=== PATIENT | male | born 1990 | race Caucasian/White ===

== ENCOUNTER 2018-11-04 12:43 | Inpatient (IN) | payer MEDICAID ==
[2018-11-04] VITALS (10 sets, daily range): BP systolic 108–134; BP diastolic 64–85; BMI 29.7
[~2018-11-04] VITALS: Ht 185.4 cm; Wt 102.2 kg
--- NOTE | ~2018-11-04 | HEMODYNAMI ---
PATIENT:YRN PORTER MEDICAL RECORD: [id number] : [birth year] [address] [address] [id number] ADMISSION DATE: 11/04/18 Generatedon:11/05/201810:20 Patient name: YRN PORTER Patient #: [id number] : 1990 Date of study: 11/05/2018 Page: Of Hemodynamic Procedure Report Patient Data Patient Demographics Procedure consent was obtained First Name: YRN Gender: Male Last Name: GERMAN : 1990 Patient #: [id number] Age: 28 year(s) Race: SSN: [id number] Additional ID: [id number] Contact details Address: [address] [place] [address] State: [facility] Zip code: [address] Admission Admission Data Admission Date: 11/04/2018 Admission Time: 13:15 Arrival Date: 11/05/2018 Arrival Time: 0:00 Admit Source: Emergency Insurance Payor: Medicaid department Room #: D.CV06 Height (in.): 72.83 BSA: 2.26 (m2) Height (cm.): 185 BMI: 29.8 (kg/m2) Weight (lbs.): 224.87 Weight (kg.): 102 Lab Results Lab Result Date: 11/05/2018 Lab Result Time: 0:28 Biochemistry Name Units Result Min Max BUN mg/dl 11 --(-*--)-- 7 18 Creatinine mg/dl 0.8 --(-*--)-- 0.6 1.3 CBC Name Units Result Min Max Hematocrit % 41.1 -*(----)-- 42 54 Hemoglobin g/dl 14.1 --(*---)-- 13.5 17.5 Procedure Procedure Types Cath Procedure Diagnostic Procedure C [facility] w/Coronaries Sedation Charges Moderate Sedation up to 15 minutes PCI Procedure Coronary Stent Coronary Stent Initial Procedure Description Procedure Date Procedure Date: 11/05/2018 Procedure Start Time: 9:43 Procedure End Time: 10:13 Procedure Staff Name Function Gianluca Donaldson MD Performing Physician Mane Mccabe RT Monitor Kemi Padilla RT Scrub Harry Ibarra RN Nurse Procedure Data Cath Procedure Fluoroscopy Diagnostic fluoroscopy Total fluoroscopy Time: time: 8.33 min 8.33 min Diagnostic fluoroscopy Total fluoroscopy dose: dose: 1146 mGy 1146 mGy Contrast Material Contrast Material Type Amount (ml) Isovue 300 161 Entry Location Entry Primary Successful Side Size Upsize Upsize Entry Closure Succes sful Closure Location (Fr) 1 (Fr) 2 (Fr) Remarks Device Remarks Femoral Right 6 Fr Exoseal artery Short Estimated blood loss: 10 ml Diagnostic catheters Device Type Used For End Catheter Placement MULTIPACK Pigtail 5 Fr Procedure catheter MULTIPACK JL 4.0 5Fr Procedure catheter MULTIPACK 3DRC 5Fr Procedure catheter DIAGNOSTIC AR2 MOD 5 Fr Procedure catheter ([id number]) Procedure Complications No complications Procedure Medications Medication Administration Route Dosage 0.9% NaCl I.V. 100 ml/hr Oxygen etCO2 Nasal cannula 2 l/min Heparin Flush Bag added to field 2 bags (1000units/500ml NS) Lidocaine 2% added to field 20 Radial Cocktail added to field 1 syringe (Verapamil 2mg/Nitro 400mcg/Heparin 1500units) Versed I.V. 2 mg Fentanyl I.V. 50 mcg Versed I.V. 1 mg Versed I.V. 1 mg Integrilin (Bolus I.V. 9 ml 2mg/ml) Integrilin (Bolus wasted 1 ml 2mg/ml) Heparin Bolus I.V. 3000 units Plavix P.O. 600 mg Hemodynamics Rest BSA: 2.26 (m2) O2 Consumption: Estimated: 287.22 (ml/min) O2 Consumption indexed : Estimated:127.09 (ml/min/m) Heart Rate: 74 (bpm) Pressure Samples Time Site Value (mmHg) Purpose Heart Use Rate(bpm) 9:48 LV 74/73,71 Snapshot 72 Snapshots Pre Cath Intra NCS Post Cath Vital Signs Time Heart Resp SPO2 etCO2 NIBP Rhythm Pain Sedation Rate (ipm) (%) (mmHg) (mmHg) Status Level (bpm) 9:29:20 70 20 100 38 116/78(98) NSR 0 (11) 10(A) , No pain 9:34:44 72 19 99 38.7 125/69(89) NSR 0 (11) 10(A) , No pain 9:39:00 76 11 97 32.8 105/58(87) NSR 0 (11) 10(A) , No pain 9:43:55 73 11 99 46.9 105/63(86) NSR 0 (11) 10(A) , No pain 9:49:02 71 21 97 23.1 115/50(85) NSR 0 (11) 10(A) , No pain 9:53:14 76 13 99 38.7 118/67(88) NSR 0 (11) 9(A) , No pain 9:58:05 74 12 99 41.7 99/71(85) NSR 0 (11) 9(A) , No pain 10:02:49 76 13 95 40.2 109/70(86) NSR 0 (11) 9(A) , No pain 10:06:55 78 12 97 39.5 110/64(80) NSR 0 (11) 9(A) , No pain 10:11:19 68 19 99 30.5 110/62(80) NSR 0 (11) 10(A) , No pain Medications Time Medication Route Dose Verified Delivered Reason Not es Effectiveness by by 9:30:28 0.9% NaCl I.V. 100 Harry Harry Per physician ml/hr Fred Ibarra RN RN 9:30:39 Oxygen etCO2 2 l/min Harry Harry for low 02 sats Nasal Lorigan Fred cannula RN RN 9:30:52 Heparin Flush added 2 bags Harry Harry used for Bag to Lorigan Lorchad procedure (1000units/500ml field PEREA RN NS) 9:31:03 Lidocaine 2% added 20ml Harry Harry for local to vial Lorigan Lorigan anesthetic field PEREA RN 9:31:16 Radial Cocktail added 1 Harry Harry used for (Verapamil to syringe Lorigan Lorigan procedure 2mg/Nitro field PEREA RN 400mcg/Heparin 1500units) 9:44:21 Versed I.V. 2 mg Harry Harry for sedation Fred Ibarra RN, RN 9:44:30 Fentanyl I.V. 50 mcg Harry Harry for sedation Fred Ibarra RN, RN 9:48:37 Versed I.V. 1 mg Harry Harry for sedation Fred Ibarra RN RN 9:51:15 Versed I.V. 1 mg Harry Harry for sedation Fred Ibarra RN RN 10:02:18 Integrilin I.V. 9 ml Harry Harry for (Bolus 2mg/ml) Fred Ibarra antiplatelet RN RN therapy 10:03:35 Integrilin wasted 1 ml Harry Harry to sharp's (Bolus 2mg/ml) Fred Ibarra RN RN 10:03:55 Heparin Bolus I.V. 3,000 Harry Harry for units Fred Ibarra anticoagulation RN RN 10:12:33 Plavix P.O. 600 mg Harry Harry for Fred Ibarra antiplatelet RN RN therapy Procedure Log Time Note 9:12:05 Informed consent obtained and on chart 9:14:27 Patient Weight : 224.87 lbs 9:14:35 Patient Height : 72.83 inches 9:14:44 Insurance Payor : Medicaid 9:14:53 Arrival Date: 11/05/2018 12:00:00 AM 9:14:55 Admit Source: Emergency department 9:19:51 Lab Result : Hemoglobin 14.1 g/dl 9:19:51 Lab Result : Creatinine 0.8 mg/dl 9:19:51 Lab Result : BUN 11 mg/dl 9:19:51 Lab Result : Hematocrit 41.1 % 9:20:38 ACC Patient presents with Non-STEMI CCS Anginal Class 4--Inability to carry out any physical activity w/o angina. Angina may occur at rest. 9:20:41 Procedure Status Urgent Heart Cath (IP). 9:20:43 ACCPatient has been prescribed/administered the following anti-anginal medication within the last 2 weeks: None 9:20:45 Kemi Padilla RT(R) sent for patient. Start room use. 9:20:46 Time tracking: Regular hours (M-F 7:00 - 5:00) 9:20:49 Plan of Care:Hemodynamics will remain stable., Cardiac rhythm will remain stable., Comfort level will be maintained., Respiratory function will remain adequate., Patient/ family verbilizes understanding of procedure., Procedure tolerated without complication., Recovers from procedure without complications.. 9:21:03 H&P Date Dictated: 11/05/2018 Within 30 days and on chart.. 9:23:46 Patient received from CVICU to CCL 2 Alert and oriented. Tansferred to table in Supine position. 9:23:47 Warm blankets applied, and siomara hugger turned on for patient comfort. 9:23:48 Correct patient and procedure confirmed by team. 9:23:48 ECG and BP/O2 sat monitors applied to patient. 9:23:49 Pre-procedure instructions explained to patient. 9:23:49 Pre-op teaching completed and patient verbalized understanding. 9:23:51 Family in waiting room. 9:23:52 Patient NPO since Midnight. 9:28:05 Vital chart was started 9:30:28 0.9% NaCl 100 ml/hr I.V. was administered by Harry Ibarra RN; Per physician; 9:30:39 Oxygen 2 l/min etCO2 Nasal cannula was administered by Harry Ibarra RN; for low 02 sats; 9:30:48 SHEATH 6FR [place] ([id number]) opened to sterile field. 9:30:52 Heparin Flush Bag (1000units/500ml NS) 2 bags added to field was administered by Harry Ibarra RN; used for procedure; 9:31:03 Lidocaine 2% 20ml vial added to field was administered by Harry Ibarra RN; for local anesthetic; 9:31:16 Radial Cocktail (Verapamil 2mg/Nitro 400mcg/Heparin 1500units) 1 syringe added to field was administered by Harry Ibarra RN; used for procedure; 9:32:48 Baseline sample Acquired. 9:32:52 Rhythm: sinus rhythm 9:32:54 Full Disclosure recording started 9:33:16 Patient diabetic? Yes. 9:33:25 If diabetic: On Metformin? No 9:33:27 ----Pre-sedation anethsthesia assessment.---- 9:33:30 Previous problem with sedation/anesthesia? No ? 9:33:32 Snore? Yes 9:33:33 Sleep apnea? Yes 9:33:35 Deviated septum? No 9:33:37 Opens mouth fully? Yes 9:33:39 Sticks out tongue? Yes 9:33:45 Airway obstruction? Yes COPD 9:33:50 Dentures? No ? 9:33:55 Pre procedure: right dorsailis pedis pulse 2+ Normal; easily identifiable; not easily obliterated 9:34:07 Patient pain scale 0/10 ?. 9:34:20 IV patent on arrival in left wrist with 0.9% NaCl at KVO. 9:34:26 Lab results completed and on chart. 9:34:32 Right Radial & Right Groin area was prepped with chlora-prep and draped in sterile fashion 9:34:34 Alarms reviewed by R. N. 9:34:35 Sharps counted by scrub and verified by R.N. 9:35:54 1) 90+ Normal kidney functon but urine findings or structural abnormalities or genetic trait point to kidney disease. 9:36:18 Use device set Radial Dx or PCI 9:36:19 ACIST Syringe (31503) opened to sterile field. 9:36:20 Medline Cath Pack ([id number]) opened to sterile field. 9:36:21 Bag Decanter (2002S) opened to sterile field. 9:36:21 ACIST Hand Control (61331) opened to sterile field. 9:36:22 ACIST Manifold (14161) opened to sterile field. 9:36:23 Tegaderm 4 x 4 (1626W) opened to sterile field. 9:36:24 MBrace Wrist Support ([id number]) opened to sterile field. 9:36:26 EMERALD Guide Wire (262-214) opened to sterile field. 9:36:27 SHEATH 6FR RAIN (7988204) opened to sterile field. 9:43:21 Physician arrived 9:43:21 --------ALL STOP TIME OUT------ 9:43:21 Final Timeout: patient, procedure, and site verified with staff and physician. All members of the team are in agreement. 9:43:23 Right Radial & Right Groin site verified by team. 9:43:26 Fire Safety Assessment: A--An alcohol-based skin anteseptic being used preoperatively., C--Open oxygen or nitrous oxide is being used., D--An ESU, laser, or fiber-optic light is being used. 9:43:28 Physical assessment completed. ASA score P 2 - A patient with mild systemic disease as per Gianluca Donaldson MD. 9:43:34 Maximum allowable contrast dose (3.7 X eGFR X 0.75)249 ml. 9:43:36 Sedation plan: IV Moderate Sedation Medication:Versed, Fentanyl 9:43:39 Procedure started. 9:43:44 Local anesthetic to right radial artery with Lidocaine 2% by Gianluca Donaldson MD.INITIAL ACCESS ONLY 9:43:46 Zero performed for pressure channel P1 9:43:49 Zero performed for pressure channel P1 9:44:21 Versed 2 mg I.V. was administered by Harry Ibarra RN; for sedation; 9:44:30 Fentanyl 50 mcg I.V. was administered by Harry Ibarra RN; for sedation; 9:47:24 Use device set Multipack Set 9:47:26 DIAGNOSTIC Multipack 5Fr catheter set (FL8728) opened to sterile field. 9:47:32 Local anesthetic to right femoral artery with Lidocaine 2% by Gianluca Donaldson MD.ADDITIONAL ACCESS 9:47:39 A 6 Fr Short sheath was inserted into the Right Femoral artery 9:48:37 Versed 1 mg I.V. was administered by Harry Ibarra RN; for sedation; 9:48:49 A MULTIPACK Pigtail 5 Fr catheter was advanced over the wire and used for Procedure. 9:48:55 LV gram done using HSU 9:48:58 Injector settings: Ml/sec: 10, Volume: 20, 9:48:59 LV hemodynamics recorded. 9:49:04 EF : 40 % 9:49:05 Catheter exchanged over wire. 9:49:17 A MULTIPACK JL 4.0 5Fr catheter was advanced over the wire and used for Procedure. 9:50:11 LCA angiography performed. 9:50:21 INFLATOR Merit BasixCompak (ZZ3130) opened to sterile field. 9:50:22 CHOICE PT Extra Support 182cm wire ([id number]) opened to sterile field. 9:50:52 Catheter exchanged over wire. 9:51:02 A MULTIPACK 3DRC 5Fr catheter was advanced over the wire and used for Procedure. 9:51:15 Versed 1 mg I.V. was administered by Harry Ibarra RN; for sedation; 9:52:42 Catheter exchanged over wire. 9:52:52 A DIAGNOSTIC AR2 MOD 5 Fr catheter ([id number]) was advanced over the wire and used for Procedure. 9:53:28 Catheter removed. unable to cannulate vessel. 9:54:51 GUIDE 6FR AL 2.0 catheter (IE8QS92) opened to sterile field. 9:55:00 6 Fr AL 2 guide catheter was inserted over the wire 9:57:12 Guide Catheter removed. unable to cannulate vessel. 9:59:23 Guide Catheter removed. unable to cannulate vessel. 9:59:30 GUIDE 6FR LCB catheter (LA6LCB) opened to sterile field. 9:59:38 6 Fr LCB guide catheter was inserted over the wire 10:00:34 Catheter removed. unable to cannulate vessel. 10:00:39 GUIDE 6FR ALR1-2 catheter ([id number]) opened to sterile field. 10:00:49 6 Fr ALR1-2 guide catheter was inserted over the wire 10:01:22 RCA angiography performed. 10::49 Catheter exchanged over wire. 10:01:57 GUIDE 6FR XBLAD 4.0 catheter ([id number]) opened to sterile field. 10:02:05 6 Fr XBLAD 4 guide catheter was inserted over the wire 10:02:18 Integrilin (Bolus 2mg/ml) 9 ml I.V. was administered by Harry Ibarra RN; for antiplatelet therapy; 10:03:24 ACT drawn and resulted at 139 seconds. (normal therapeutic range 180-240 seconds). 10:03:29 CHOICE PT ES wire advanced. 10:03:35 Integrilin (Bolus 2mg/ml) 1 ml wasted was administered by Harry Ibarra RN; to sharp's; 10:03:55 Heparin Bolus 3,000 units I.V. was administered by Harry Ibarra RN; for anticoagulation; 10:06:11 Wire advanced across lesion. 10:06:25 Pre PCI Site: [place] pLAD has 99% stenosis. 10:06:28 ACC Pre-intervention GINA Flow is 3. 10:06:43 Place stent Inflation Number: 1 A COBRA RX 3.0 X 18 Stent was prepped and advanced across the Prox LAD . The stent was deployed at 17 ASHLEY for 0:10 (min:sec) . 10:09:46 Post PCI Site: [place] pLAD has 0% stenosis. 10:09:49 ACC Post-intervention GINA Flow is 3. 10:09:51 Stent catheter was removed intact over wire. 10::52 Wire removed. 10:09:52 Guide catheter removed. 10:09:59 EXOSEAL 6Fr (EX600) opened to sterile field. 10:10:08 Sheath removed intact; hemostasis achieved with Exoseal to the Right Femoral artery. 10:10:09 Procedure ended.(Physican Out) 10:10:41 ACCDominant side:Co-Dominant 10:10:48 Fluoroscopy time 08.33 minutes. 10:10:54 Flurop Dose total: 1146 10:10:54 Fluoroscopy dose: 1146 mGy 10:11:00 Dose Area Product 40295 mGy/cm. 10:11:04 Contrast amount:Isovue 300 161ml. 10:11:07 Maximum allowable dose exceeded? No. 10:11:08 Sharps counted by scrub and verified by R.N. 10:11:48 Insertion/operative site no bleeding no hematoma. 10:11:51 Post-op/insertion site Right Femoral artery dressed using a 4 x 4 and Tegaderm. 10:11:54 Post right femoral artery:stable, soft, clean and dry 10:11:55 Post Procedure Pulses reassessed and unchanged 10:11:57 Post-procedure physical assessment completed. ASA score P 2 - A patient with mild systemic disease as per Gianluca Donaldson MD. 10:12:00 Post procedure rhythm: unchanged. 10:12:03 Estimated blood loss: 10 ml 10:12:04 Post procedure instruction explained to patient.Patient verbalizes understanding. 10:12:05 Patient needs reinforcement of post procedure teaching. 10:12:23 Procedure type changed to Cath procedure, Diagnostic procedure, LHC, LHC w/Coronaries, Sedation Charges, Moderate Sedation up to 15 minutes, PCI procedure, Coronary Stent, Coronary Stent Initial 10:12:33 Plavix 600 mg P.O. was administered by Harry Ibarra RN; for antiplatelet therapy; 10:13:10 Procedure and supply charges have been captured, reviewed, submitted and are correct. 10:13:11 Procedure Complication : No complications 10:13:13 Vital chart was stopped 10:13:13 See physician's report for complete and final results. 10:13:15 Report given to CVICU. 10:13:18 Patient transfered to CVICU with Stretcher. 10:13:32 Procedure ended. 10:13:32 Full Disclosure recording stopped 10:13:41 ACC-PCI Only Patient was given prescriptions, or instructed by Gianluca Donaldson MD to start/continue the following medications upon discharge: Aspirin, Plavix 10:13:42 End room use (Document Last) Intervention Summary Intervention Notes Time ActionType Lesion and Equipment Action# Pressure Duration Attributes Used 10:06:43 Place stent Prox LAD COBRA RX 1 17 00:10 3.0 X 18 Stent Device Usage Item Name Manufacture Quantity Catalog Number Hospital Part Current Minimal Lot# / Charge Number Stock Stock Serial# Code ACIST Syringe Acist 1 23946 144634 864547 057620 20 (56615) Medical Systems Inc Medline Cath Medline 1 [id number] 725848 80079 919252 5 Pack ([id number]) Bag Decanter Microtek 1 2001S 050109 09182 405161 5 (2001S) Medical Inc. ACIST Hand Acist 1 54745 625961 287856 493567 5 Control Medical (26488) Systems Inc ACIST Manifold Acist 1 80620 621106 053119 774148 5 (69459) Medical Systems Inc Tegaderm 4 x 4 3M 1 1626W 992520 051555 416399 5 (1626W) MBrace Wrist Advanced 1 140-0250-00 551987 40397 095751 5 Support Vascular (120943710) Dynamics EMERALD Guide Cardinal 1 502-455 232211 733822 085813 5 Wire (502-455) Health SHEATH 6FR Cardinal 1 5231022 687587 2621839 237070 5 RAIN (6967756) Health DIAGNOSTIC Cardinal 1 MS8360 355723 82144 030946 30 Multipack 5Fr Health catheter set (VK9168) SHEATH 6FR Terumo 1 VGY878 825951 893199 711919 40 [place] (DXM665) MULTIPACK Cardinal 1 346359 5 Pigtail 5 Fr Health catheter MULTIPACK JL Cardinal 1 101057 5 4.0 5Fr Health catheter INFLATOR Merit Merit 1 UK6633 737961 451829 995274 15 Second LightmaHexadite Medical (NX8854) CHOICE PT [place] 1 [id number] 108958 936413 116432 5 Extra Support Scientific 182cm wire (0731707X4) MULTIPACK 3DRC Cardinal 1 844806 5 5Fr catheter Health DIAGNOSTIC AR2 Cardinal 1 [id number] 009069 673900 546721 20 MOD 5 Fr Health catheter (649104M) GUIDE 6FR AL Medtronic 1 [id number] 391576 84839 226186 1 2.0 catheter (UQ2VD70) GUIDE 6FR LCB Medtronic 1 LA6LCB 760558 15463 483594 1 catheter (LA6LCB) GUIDE 6FR Medtronic 1 [id number] 779733 86377 799056 1 ALR1-2 catheter (FH7SOU19) GUIDE 6FR Cardinal 1 71329008 905101 879484 501581 3 XBLAD 4.0 Health catheter (11753217) COBRA RX 3.0 X Celonova 1 861-61-63357 829831 713308503 8265069 0 4 [id number] 18 stent Biosciences (151-76-37863) EXOSEAL 6Fr Cardinal 1 EX600 727805 215410 210047 10 (EX600) Health Signature Audit [place] Stage Time Signature Unsigned Intra-Procedure 11/05/2018 Mane Mccabe 10:19:47 AM RT(R) Signatures Performing Physician : Signature : Gianluca Donaldson MD Date : Time : Monitor : Mane Mccabe RT Signature : Date : Time : Nurse : Harry Ibarra Signature : RN Date : Time : [facility] [address] [place] [address]
[2018-11-04 13:09] LABS: BASOPHILS 0.4 % (0-2); EOSINOPHILS 2.5 % (0-7); HEMATOCRIT 40.7 % (42.0-54.0); HEMOGLOBIN 14.1 g/dL (13.5-17.5); IMMATURE GRANULOCYTES 0.4 % (0-5); LYMPHOCYTES 15.9 % (15-50); MCH 31.4 pg (26.0-34.0); MCHC 34.6 g/dL (31.0-37.0); MCV 90.6 fL (80.0-100.0); MEAN PLATELET VOLUME 10.1 fL (7.4-10.4); NEUTROPHILS 72.8 % (40-80); PLATELET COUNT 333 10x3/uL (130-400); RBC 4.49 10x6/uL (4.20-6.10); RDW 13.3 % (11.5-14.5); WBC 12.2 10x3/uL (4.8-10.8)
[2018-11-04 13:20] LABS: INR 0.98 (0.85-1.17); PROTIME 12.5 SECONDS (11.6-15.0)
[2018-11-04 13:21] LABS: APTT 51.9 SECONDS (22.8-39.4)
[2018-11-04 13:32] LABS: ALBUMIN 3.3 g/dL (3.4-5.0); ALKALINE PHOSPHATASE 75 U/L (46-116); ALT (SGPT) 40 U/L (10-68); BILIRUBIN - TOTAL 0.49 mg/dL (0.2-1.3); CALC OSMOLALITY 279 mosm/kg (275-300); CALCIUM 8.1 mg/dL (8.5-10.1); CARBON DIOXIDE 27.3 mmol/L (21.0-32.0); CHLORIDE - SERUM 107 mmol/L (98-107); CREATININE - SERUM 0.8 mg/dL (0.6-1.3); GLUCOSE 90 mg/dL (74-106); SODIUM 141 mmol/L (136-145); UREA NITROGEN 11 mg/dL (7-18); eGFR NON AFRICAN AMERICAN > 90 mL/min (90-120)
[2018-11-04 13:41] LABS: CKMB 40.8 U/L (0.0-3.6); CREATINE KINASE 386 UL (21-232); PRO BNP 687 pg/mL (0-125)
--- NOTE | 2018-11-04 15:58 | NUR ---
REC'D PT TO ICU. INCREASED HEPARIN GTT TO 1100U/H PER SS ORDER. NXT PTT PLACED AT 2100 PER SS. PT DENIES CP AT PRESENT TIME. ALL MONITORING EQUIPMENT ATTACHED. ALARMS SET. ORIENTED PT AND HIS GF TO DEPT AND VISITING HRS.
--- NOTE | 2018-11-04 17:53 | NUR ---
PT CO C/P. RATES 6 ON SCALE [address] PACHECO AND REC'D CALL BACK. REC'D ORDERS. MS TERRA.
--- NOTE | 2018-11-04 18:03 | NUR ---
PT REQUESTING FOR THIS RN TO CHECK HIS BLOOD SUGAR. HE STATES THAT HIS BS DROPS AND HE FEELS LIKE ITS LOW NOW. FSBS DONE AND BS RESULTS 131.
--- NOTE | 2018-11-04 19:15 | NUR ---
REPORT RECIEVED, PT RESTING IN BED. AAOX4, PARTNER AT BEDSIDE. CONSENT FORMS SIGNED FOR CARDIAC CATH AND BLOOD. PT ON 2L O2 VIA NC, ASSESSMENT COMPLETED, SEE FLOWSHEET. L AC PIV TO SL, R AC PIV TO SL, L WRIST PIV INFUSING, SEE IV FLOWSHEET. CALL LIGHT IN REACH, WILL CONTINUE TO MONITOR.
--- NOTE | 2018-11-04 20:36 | NUR ---
PT AGITATED, REQUESTING CIGARRETE OR NICOTINE PATCH. DR PACHECO PAGED AND ORDERS RECIEVED FOR NICOTINE PATCH.
--- NOTE | 2018-11-04 23:00 | NUR ---
PT RESTING IN BED, NO SIGNS OF ACUTE DISTRESS, WILL CONTINUE TO MONITOR.
[2018-11-05] VITALS (19 sets, daily range): BP systolic 94–148; BP diastolic 56–87; Ht 185.4 cm; Wt 102.2 kg
[2018-11-05 00:33] LABS: HEMATOCRIT 41.1 % (42.0-54.0); HEMOGLOBIN 14.1 g/dL (13.5-17.5); MCH 30.9 pg (26.0-34.0); MCHC 34.3 g/dL (31.0-37.0); MCV 90.1 fL (80.0-100.0); MEAN PLATELET VOLUME 10.1 fL (7.4-10.4); RBC 4.56 10x6/uL (4.20-6.10); RDW 13.4 % (11.5-14.5); WBC 13.7 10x3/uL (4.8-10.8)
--- NOTE | 2018-11-05 01:00 | NUR ---
PT RESTING, VITALS STABLE, WILL CONTINUE TO MONITOR.
--- NOTE | 2018-11-05 03:15 | NUR ---
PT RESTING COMFORTABLY, NO SIGNS OF ACUTE DISTRESS. CALL LIGHT IN REACH, VITALS STABLE, WILL CONTINUE TO MONITOR.
--- NOTE | 2018-11-05 05:15 | NUR ---
PT'S PARTNER IN ROOM, PT RESTING IN BED. PARTNER ASSISTING WITH CHG BATH. CALL LIGHT IN REACH, WILL CONTINUE TO MONITOR.
--- NOTE | 2018-11-05 07:56 | NUR ---
0700 PT RECIEVED ALERT AND ORIENTED ON ROOM AIR HR NSR 70S, LAC RAC PIVS SL, L WRIST PIV SL WITH HEPARIN INFUSING, CONTIENNT, CALL LIGHT WITHIN REACH, DENIES ALL NEEDS
--- NOTE | 2018-11-05 09:22 | NUR ---
PREOP MEDS GIVEN AND PT TO APPLICATION DEVELOPMENT TEAM LEAD WITH CATH TEAM
--- NOTE | 2018-11-05 10:54 | NUR ---
1036 RECIEVED BACK TO ROOM, R GROIN SITE SOFT, NO SIGNS OF BLEEDING PULSES PALPABLE
--- NOTE | 2018-11-05 13:30 | NUR ---
PT BED ALARM GOING OFF, PT STANDING STATED HE HAD TO URINATE, URINAL WAS ON BEDRAIL WITHIN REACH OF PT, PT ASSISTED BACK TO BED AND REMINDED THAT HE HAD TO BE FLAT FOR 4 HOURS DUE TO RISK OF BLEEDING, SITE ASSESSED WITH NO SIGNS OF BLEEDING, PT STATED "ID KNOW IF I WAS BLEEDING AND THIS IS BULLSHIT" REMINDED PT THAT WITHOUT ASSESSING SITE I WOULD NOT KNOW IF HE WAS BLEEDING, PT URINATED AND BED ALARM ON BED.
--- NOTE | 2018-11-05 13:59 | NUR ---
REVIEWED DC INSTRUCTIONS WITH PT AND FAMILY, PT REFUSED TO OPEN EYES STATED "I CAN HEAR FINE" AND DENIES ALL QUESTIONS
--- NOTE | 2018-11-05 14:42 | NUR ---
PIVS REMOVED AND PT DCD WITH GIRLFRIEND
--- NOTE | 2018-11-06 11:10 | HP ---
PATIENT: YRN CHE MEDICAL RECORD: [id number] ACCOUNT: [id number] LOCATION:[place] [address] : 86 ADMISSION DATE: 11/04/18 PCP: No PCP HISTORY AND PHYSICAL EXAMINATION DIAGNOSES: 1. Acute anterior myocardial infarction. 2. Coronary artery disease. 3. Family history of coronary artery disease. 4. Smoking. 5. Hyperlipidemia. HISTORY OF PRESENT ILLNESS: Mr. Che has no history of ischemic heart disease, a very strong family history of heart disease, began having chest discomfort, presents to [facility] with an acute anterior myocardial infarction, underwent thrombolytic therapy, which was successful. No further chest pain. No further EKG changes. PHYSICAL EXAMINATION: CONSTITUTIONAL/GENERAL APPEARANCE: Well nourished, well developed, appears stated age. EYES: Lids and conjunctivae noninjected. No discharge. No pallor. ENT: Lips within normal limit. No cyanosis. No pallor. NECK: Carotid arteries, bilateral normal upstroke. No bruits. No thrills. No jugular venous pressure or distention. CERVICAL LYMPH NODES: Nontender. Nonenlarged. THYROID: Not enlarged. No nodules. CARDIOVASCULAR: Precordial exam, nondisplaced. No heaves or pericardial thrills. Rate and rhythm, regular. Heart sounds, normal S1, normal S2. No S3, no gallop, no rub. Systolic murmur, not heard. Diastolic murmur, not heard. RESPIRATORY: Respiratory effort, unlabored. Normal curvature. No thoracic deformity. No chest wall tenderness. Percussion, resonant. Auscultation, clear. No wheezes, no rales, no rhonchi. ABDOMEN: Soft, nondistended, nontender. No abdominal pain, no vomiting and normal appetite. MUSCULOSKELETAL: No joint tenderness, normal gait, normal tone. SKIN: Warm and dry. OVERALL IMPRESSION: Acute anterior myocardial infarction. The patient denies any substance abuse. He has a very strong family history of coronary artery disease and is a smoker with hyperlipidemia. Most likely, he has hemodynamically significant coronary artery disease. We will proceed with coronary angiography in the a.m. TRANSINT:[id number] Voice Confirmation ID: [id number] DOCUMENT ID: [id number] HISTORY AND PHYSICAL [id number] YRN CHE, AMY PARSONS at 1110 CC: [id number] DICTATION DATE: 11/05/18 1014 SIPHONER: 11/05/18 1023 DIS IN 11/05/18 [facility] [address] [facility] [place] [address]
--- NOTE | 2018-11-06 11:10 | OP ---
PATIENT NAME: YRN PORTER MEDICAL RECORD: [id number] :86 LOCATION:[facility] ADMISSION DATE:11/04/18 SURGEON: AMY PACHECO MD DATE OF OPERATION: 11/05/2018 PROCEDURES: 1. PTCA stent LAD. 2. Left heart catheterization. 3. Selective coronary angiography. 4. Left ventriculogram. INDICATION: Acute anterior myocardial infarction. DESCRIPTION OF PROCEDURE IN DETAIL: After informed consent was obtained and after detailed explanation of risks, benefits as well as alternative therapies, the patient elected to proceed with angiogram and angioplasty. The right femoral area was prepped and draped in normal sterile fashion. Right femoral artery was cannulated via modified Seldinger technique with placement of 6-[place] sheath. All catheters exchanged through this sheath. FINDINGS: Left ventriculogram was performed in standard 30-degree HSU view, reveals ejection fraction in the 40% range. SELECTIVE CORONARY ANGIOGRAPHY: 1. Left main is with no significant angiographic disease. 2. Left anterior descending has 90% to 95% stenosis in the proximal vessel. 3. Left circumflex has mild irregularities, but no flow-limiting stenosis. 4. Right coronary has mild irregularities, but no flow-limiting stenosis. PTCA STENT OF THE LAD: The stent used 3.0 x 18 mm Cobra taken to 15 atmospheres. Result was 0% residual stenosis. OVERALL IMPRESSION: Successful PTCA stent of the LAD going from 95% initial stenosis to 0% residual. TRANSINT:[id number] Voice Confirmation ID: [id number] DOCUMENT ID: [id number] AMY PACHECO MD at 1110 CC: [id number] DICTATION DATE: 11/05/18 1015 BATCH MAKER: 11/05/18 1040 DIS IN 11/05/18 [id number] [place] [id number]
--- NOTE | 2018-11-06 11:10 | DS ---
PATIENT:YRN CHE :86 MEDICAL RECORD: [id number] DISCHARGE SUMMARY ADMISSION DATE: 11/04/18 DISCHARGE DATE: 11/05/18 DISCHARGE DIAGNOSES: 1. Acute anterior myocardial infarction. 2. Percutaneous transluminal coronary angioplasty stent of the left anterior descending. 3. Smoking. 4. Hyperlipidemia. 5. Family history of coronary artery disease. 6. Coronary artery disease. HOSPITAL COURSE: Mr. Che presents with an acute anterior myocardial infarction to [place]. He underwent thrombolytic therapy, which was successful, underwent cardiac catheterization revealing critical disease of the LAD and underwent successful PTCA stent of the LAD. Discharged home with the addition of aspirin, Plavix, Pravachol, Lopressor to his medical regimen. He will follow up with [facility] in 1 month. TRANSINT:[id number] Voice Confirmation ID: [id number] DOCUMENT ID: [id number] AMY PACHECO MD at 1110 CC: [id number] DICTATION DATE: 11/05/18 1013 NURSING MANAGER: 11/05/18 1027 DIS IN 11/05/18 [facility] [address] [place] [address]
== END 2018-11-05 14:43 | disposition home or self-care (01) | DRG 249 ==
LOC: D.ER 12:43 → D.CVICU 13:15
PROVIDERS: Family Medicine; ADMIT Internal Medicine Interventional Cardiology; ATTEND Internal Medicine Interventional Cardiology
PROC: B2151ZZ Fluoroscopy of Left Heart using Low Osmolar Contrast (ICD-10-PCS; 2018-11-05)
PROC: 4A023N7 Measurement of Cardiac Sampling and Pressure, Left Heart, Percutaneous Approach (ICD-10-PCS; 2018-11-05)
PROC: 02703DZ Dilation of Coronary Artery, One Artery with Intraluminal Device, Percutaneous Approach (ICD-10-PCS; principal; 2018-11-05 09:20)
PROC: B2111ZZ Fluoroscopy of Multiple Coronary Arteries using Low Osmolar Contrast (ICD-10-PCS; 2018-11-05 09:20)
DX: I21.09 ST elevation (STEMI) myocardial infarction involving other coronary artery of anterior wall (principal); I25.10 Atherosclerotic heart disease of native coronary artery without angina pectoris; F17.200 Nicotine dependence, unspecified, uncomplicated; E78.5 Hyperlipidemia, unspecified; Z82.49 Family history of ischemic heart disease and other diseases of the circulatory system